=== PATIENT | female | born 1960 | race Two or more races ===

== ENCOUNTER 2024-10-22 08:51 | Inpatient (IN) | payer MEDICAID ==
[2024-10-20 12:55] LABS: Urine Bacteria None Seen /hpf (None Seen)
[2024-10-20 13:00] LABS: Basophils # (auto) 0.1 10 ^3/uL (0-0.2); Basophils % (auto) 1.1 % (0.0-2.0); Eosinophils # (auto) 0.4 10 ^3/uL (0-0.8); Eosinophils % (auto) 4.3 % (0.0-7.0); Hemoglobin 14.4 g/dL (12.2-16.2); Lymphocytes # (auto) 3.1 10 ^3/uL (0.4-5.4); Lymphocytes % (auto) 34.8 % (10.0-50.0); Mean Corpuscular Hemoglobin 28.1 pg (28.0-32.0); Mean Corpuscular Hgb Conc. 33.6 g/dL (32.0-36.0); Mean Corpuscular Volume 83.8 fL (80.0-100.0); Monocytes # (auto) 0.5 10 ^3/uL (0-1.3); Monocytes % (auto) 5.8 % (0.0-12.0); Neutrophils # (auto) 4.7 10 ^3/uL (1.6-8.6); Platelet Count (auto) 246 10^3/uL (140-450); Red Blood Cells 5.12 10^6/uL (4.0-5.20); Red Cell Distribution Width 14.5 % (11.8-14.3); White Blood Cell 8.8 10^3/uL (4.4-10.8)
[2024-10-20 13:15] LABS: INR 0.94 (0.9-1.15); Partial Thromboplastin Time 26.7 SEC (24.5-34.5)
[2024-10-20 13:23] LABS: Urine Blood TRACE /uL (Negative); Urine Budding Yeast OCCASIONAL /hpf (None Seen); Urine Clarity Clear (Clear); Urine Color Light-Yellow (Yellow); Urine Protein, UAD Negative (Negative); Urine Specific Gravity 1.019 (1.001-1.035); Urine Squamous Epithelial Cell FEW /hpf (<5); Urine Urobilinogen Normal (Negative); Urine WBC 49 /HPF (0-5)
[2024-10-20 13:31] LABS: Alanine Aminotransferase 17 U/L (7-40); Albumin 4.5 g/dL (3.2-4.8); Anion Gap 10 (5-15); Aspartate Aminotransferase 15 U/L (<34); Blood Urea Nitrogen 15 mg/dL (9-23); Calcium 10.1 mg/dL (8.7-10.4); Carbon Dioxide 26 mmol/L (20-31); Chloride 105 mmol/L (98-107); Potassium 4.2 mmol/L (3.5-5.1); Sodium 141 mmol/L (136-145); Total Protein 6.7 g/dL (5.7-8.2)
[2024-10-20 13:33] LABS: Alkaline Phosphatase 117 U/L (46-116); Bilirubin, Total 0.2 mg/dL (0.2-1.0); Glucose 122 mg/dL (74-106)
[~2024-10-22] VITALS: Ht 160 cm; Wt 96.6 kg
[~2024-10-22 08:51] MED LIST: CHOL200064 PO; DOXE10CA PO; IBUP-1456 PO; TIZA4CAP PO; VENL1TAB97 PO
--- NOTE | 2024-10-22 10:30 | DVHOP2 ---
Operative Report - 2 Report Details Date: 10/22/24 Preop Diagnosis: 1. Right foot metatarsalgia 2. Right foot pes cavus 3. Right foot pain Postop Diagnosis: Same as preop Surgeon: Judit Haque MD Anesthesiologist: See anesthesia Anesthesia: General Implant: 6 2 K-wire x 2 Consent: The patient was informed of the risks and benefits of the procedure. These include but are not limited to complications of anesthesia, postoperative infection, incomplete relief of symptoms, recurrence of symptoms, damage to blood vessels, nerves and tendons, deep venous thrombosis, pulmonary embolism and possible need for repeat surgery in the future. Complications: None Estimated Blood Loss: Minimal Fluids: See anesthesia Findings: Consistent with the diagnosis Indications for Surgery: Worsening right foot pain Name of Procedure Performed 1. Right first metatarsal bunion osteotomy (67027) 2. Right second jair osteotomy (81425) 3. Right third jair osteotomy (81883) 4. Right fourth jair osteotomy (51530) 5. Right fifth tailors bunionectomy (35275) Procedure Details Procedure Details: PRE-PROCEDURE INFORMATION: In the pre-op holding area, the extremity to be opera adriana on was clearly marked and the patient verified correct laterality of the marking. The patient was transferred to the OR table and placed in a supine position. A timeout was performed in which identification of the correct patient, procedure, location, and materials was done. The right foot and leg were prepped and draped in normal sterile fashion. DESCRIPTION OF PROCEDURE: Attention was directed to the right 2nd metatarsal head where a stab incision was made. The incision was deepened through blunt and sharp dissection. Care was taken to avoid damage to neurovascular structures throughout dissection. Incision was carried to the level of the 2nd metatarsal head or on fluoroscopy as well as preoperative x-rays, it was noted there was significant plantar flexion of the metatarsal head. Using an MIS bur, the an osteotomy was performed across the neck of the metatarsal head. The metatarsal head was then able to float. It was noted off intraoperative fluoroscopy, there was significant reduction deformity. Attention was directed to the right 3rd metatarsal head where a stab incision was made. The incision was deepened through blunt and sharp dissection. Care was taken to avoid damage to neurovascular structures throughout dissection. Incision was carried to the level of the 3rd metatarsal head or on fluoroscopy as well as preoperative x-rays, it was noted there was significant plantar flexion of the metatarsal head. Using an MIS bur, the an osteotomy was performed across the neck of the metatarsal head. The metatarsal head was then able to float. It was noted off intraoperative fluoroscopy, there was significant reduction deformity. Attention was directed to the right 4th metatarsal head where a stab incision was made. The incision was deepened through blunt and sharp dissection. Care was taken to avoid damage to neurovascular structures throughout dissection. Incision was carried to the level of the 4th metatarsal head or on fluoroscopy as well as preoperative x-rays, it was noted there was significant plantar flexion of the metatarsal head. Using an MIS bur, the an osteotomy was performed across the neck of the metatarsal head. The metatarsal head was then able to float. It was noted off intraoperative fluoroscopy, there was significant reduction deformity. Attention was directed to the right lateral fifth metatarsal head where a stab incision was made. This incision was deepened through blunt and sharp dissection. Care was taken to avoid damage to neurovascular structures throughout dissection. The incision was carried to the level of the fifth metatarsal head where on intraoperative fluoroscopy as well as preoperative x- rays, it was noted there was no significantly increased lateral deviation angle of the fifth metatarsal, but the lateral aspect of the fifth metatarsal head appeared to be prominent. This indicated that the patient would benefit from an ostectomy of the metatarsal head without osteotomy. Using an MIS bur, an osteotomy was made across the neck of the metatarsal head. Using a 0.62 K wire, the wire was then placed down the shaft of the 5th metatarsal holding the head in the appropriate position. It was noted on intraoperative fluoroscopy, there was significant reduction of deformity Attention was directed to the right 1st metatarsophalangeal joint where a stab incision was made at the neck of the 1st metatarsal. Care was taken to avoid damage the neurovascular and tendinous structures. Using intraoperative fluoroscopy and an MIS per, an osteotomy was then made at the neck of the 1st metatarsal. The metatarsal head was then shifted into position aligning the sesamoid bones over the fragment. Using a 6 2 K-wire, the wire was then driven down the shaft of the 1st metatarsal to hold the head in place until the osteotomy has healed. Fluoroscopy verified proper placement of hardware as well as correction of previous bunion deformity. All surgical wounds were irrigated copiously with saline and closed in layers with the aforementioned suture material. A dry sterile dressing was placed on the surgical extremity. The patient was placed in a cam boot POSTOPERATIVE INFORMATION: The patient tolerated the above noted procedure and anesthesia well and was transferred to the PACU with vital signs stable, and vascular status intact with capillary refill intact to all digits. Postoperative instructions reviewed in detail with the patient with written instructions pr ovided. Patient will return to clinic in approximately 10-14 days for first postoperative visit. Patient has the number of the clinic and was instructed to call prior to that time should any problems, questions, or concerns arise. Condition Good Disposition Home JUDIT HAQUE DPM Oct 22, 2024 10:30
[2024-10-22] MEDS ORDERED: fentaNYL CITRATE 100 MCG/2 ML VL ONE (11:47)
[2024-10-22] MEDS ORDERED: PROPOFOL 10 MG/ML 20 ML IV ONE (11:47)
[2024-10-22] MEDS ORDERED: ONDANSETRON HCL 4 MG/2 ML VIAL ONE (11:57)
[2024-10-22] MEDS ORDERED: DexAMETHasone SOD PHOS 10MG/1ML VIAL INJ ONE (11:57)
[2024-10-22] MEDS ORDERED: HYDROmorphone HCL 2 MG/ML VL/or syr ONE ×2 (12:02→12:51)
[2024-10-22] MEDS ORDERED: ePHEDrine SULFATE 50 MG/ML AMP ONE (12:04)
[2024-10-22] MEDS: ceFAZolin 2 GM/D5W50ml 50 ML IV ONE (12:04)
[2024-10-22] MEDS: LIDOCAINE 1% HCL (LOCAL ANESTH.) INJ 20ML MDV ONE (12:05)
[2024-10-22 12:23] VITALS: PULSE 76; RESP 13; O2SAT 100
[2024-10-22] MEDS ORDERED: ACETAMINOPHEN IV 100 ML IV ONE (12:51)
[2024-10-22] MEDS: HYDROmorphone HCL 2 MG/ML VL/or syr IV PRN (12:53)
[2024-10-22] MEDS: ACETAMINOPHEN IV 1000 MG/100ML (10MG/ML) IV PRN (13:00)
[2024-10-22] MEDS: ONDANSETRON HCL 4 MG/2 ML VIAL IV ONE (13:55)
[2024-10-22] MEDS ORDERED: NITROGLYCERIN 0.4 MG SL TAB SL PRN ×2 (15:00→15:30)
[2024-10-22] MEDS ORDERED: MORPHINE SULFATE INJ 2 MG/ml SYRG IV PRN ×2 (15:00→15:30)
[2024-10-22] MEDS ORDERED: LORazepam 2MG/ML-1ML VIAL IV PRN (15:30)
--- NOTE | 2024-10-22 15:33 | DVHHP2 ---
Review of Systems Allergies: Coded Allergies: NO KNOWN ALLERGIES (Unverified , 10/17/24) Medications Current Medications Medications Dose Ordered Sig/Ally Route Start Time Stop Time Status Last Admin Dose Admin Nitroglycerin 0.4 mg Q5MINP PRN SL 10/22/24 15:00 Morphine Sulfate 2 mg Q30M PRN IV 10/22/24 15:00 Exam Vital Signs Vital Signs Date Time Temp Pulse Resp B/P (MAP) Pulse Ox O2 Delivery O2 Flow Rate FiO2 10/22/24 14:23 Nasal Cannula 2.0 97 10/22/24 12:23 76 13 100 10/22/24 12:23 98.5 107/58 (74) 98.5 Labs/Xrays Labs Test 10/20/24 12:50 Range/Units White Blood Count 8.8 4.4-10.8 10^3/uL Red Blood Count 5.12 4.0-5.20 10^6/uL Hemoglobin 14.4 12.2-16.2 g/dL Hematocrit 43.0 36.0-46.0 % Mean Corpuscular Volume 83.8 80.0-100.0 fL Mean Corpuscular Hemoglobin 28.1 28.0-32.0 pg Mean Corpuscular Hemoglobin Concent 33.6 32.0-36.0 g/dL Red Cell Distribution Width 14.5 H 11.8-14.3 % Platelet Count 246 140-450 10^3/uL Mean Platelet Volume 8.5 6.9-10.8 fL Neutrophils (%) (Auto) 54.0 37.0-80.0 % Lymphocytes (%) (Auto) 34.8 10.0-50.0 % Monocytes (%) (Auto) 5.8 0.0-12.0 % Eosinophils (%) (Auto) 4.3 0.0-7.0 % Basophils (%) (Auto) 1.1 0.0-2.0 % Neutrophils # (Auto) 4.7 1.6-8.6 10 ^3/uL Lymphocytes # (Auto) 3.1 0.4-5.4 10 ^3/uL Monocytes # (Auto) 0.5 0-1.3 10 ^3/uL Eosinophils # (Auto) 0.4 0-0.8 10 ^3/uL Basophils # (Auto) 0.1 0-0.2 10 ^3/uL Nucleated Red Blood Cells 0.0 % Prothrombin Time 10.0 9.3-11.8 sec Prothrombin Time INR 0.94 0.9-1.15 Activated Partial Thromboplast Time 26.7 24.5-34.5 SEC Urine Color Light-yellow Yellow Urine Clarity Clear Clear Urine pH 5.0 5.0-9.0 Urine Specific [place] 1.019 1.001-1.035 Urine Protein Negative Negative Urine Ketones Negative Negative Urine Blood Trace H Negative /uL Urine Nitrite Negative Negative Urine Bilirubin Negative Negative Urine Urobilinogen Normal Negative mg/dL Urine Leukocyte Esterase 3+ Negative /uL Urine RBC 2 0 - 4 /hpf Urine Microscopic WBC 49 H 0-5 /HPF Urine Squamous Epithelial Cells Few <5 /hpf Urine Bacteria None seen None Seen /hpf Urine Yeast (Budding) Occasional None Seen /hpf Urine Glucose Normal Normal mg/dL Sodium Level 141 136-145 mmol/L Potassium Level 4.2 3.5-5.1 mmol/L Chloride Level 105 98-107 mmol/L Carbon Dioxide Level 26 20-31 mmol/L Anion Gap 10 5-15 Blood Urea Nitrogen 15 9-23 mg/dL Creatinine 1.00 0.550-1.02 mg/dL Glomerular Filtration Rate Calc 64 >90 mL/min BUN/Creatinine Ratio 15.0 10.0-20.0 Serum Glucose 122 H 74-106 mg/dL Calcium Level 10.1 8.7-10.4 mg/dL Total Bilirubin 0.2 0.2-1.0 mg/dL Aspartate Amino Transferase (AST) 15 <34 U/L Alanine Aminotransferase (ALT) 17 7-40 U/L Alkaline Phosphatase 117 H 46-116 U/L Total Protein 6.7 5.7-8.2 g/dL Albumin 4.5 3.2-4.8 g/dL Assessment/Plan Assessment/Plan SEE DICTATED NOTE Plan discussed with: Patient My Orders Orders - RAY PARKER MD Procedure Category Date Status Time Admit ADMIT 10/22/24 Transmitted 14:51 Electrocardigram EKG 10/22/24 Logged 14:51 Oxygen By Nasal RT 10/22/24 Transmitted Cannula 14:51 Nitroglycerin PHA 10/22/24 In Process Sublingual (Ntrostat 15:00 Morphine Sulfate PHA 10/22/24 In Process Injection 15:00 Stat Ekg For Chest [facility]STOP[facility] 10/22/24 In Process Pain 14:51 Notify Md Of Changes [facility] 10/22/24 In Process From Base 14:51 Gas Meter Repairer For [facility] 10/22/24 In Process 24 Hours 14:51 Emergency Dysrhythmia [facility] 10/22/24 In Process Protocol 14:51 Rhythm Strips Once [facility] 10/22/24 In Process Every Shift 14:51 Admit ADMIT 10/22/24 Transmitted 15:28 Nitroglycerin [facility] 10/22/24 Transmitted Sublingual (Ntrostat 15:30 Morphine Sulfate PHA 10/22/24 Transmitted Injection 15:30 Stat Ekg For Chest CRISTOPHER 10/22/24 In Process Pain 15:28 Notify Md Of Changes [facility] 10/22/24 Transmitted From Base 15:28 Gas Meter Repairer For [facility] 10/22/24 Transmitted 24 Hours 15:28 Emergency Dysrhythmia [facility] 10/22/24 Transmitted Protocol 15:28 Rhythm Strips Once [facility] 10/22/24 Transmitted Every Shift 15:28 Oxygen By Nasal RT 10/22/24 Transmitted Cannula 15:28 Complete Blood Count LAB 10/22/24 Logged 15:28 Comprehensive LAB 10/22/24 Logged Metabolic Panel 15:28 Troponin-I Hs LAB 10/22/24 Logged 15:28 Troponin-I Hs LAB 10/22/24 Logged 16:28 Troponin-I Hs LAB 10/22/24 Logged 18:28 NS PHA 10/22/24 Transmitted 15:30 Lorazepam 2mg/Ml Inj PHA 10/22/24 Transmitted (Ativan Inj) 15:30 Acetaminophen Tablet PHA 10/22/24 Transmitted (Tylenol Tablet) 15:30 Hydrocodone-Acet PHA 10/22/24 Transmitted 5/325mg Tab (Mandan 15:30 Ondansetron Hcl PHA 10/22/24 Transmitted (Zofran) 15:30 Urinalysis LAB 10/22/24 Uncollected 15:28 Chest Portable XY 10/22/24 Transmitted 15:28 Date of Service: Oct 22, 2024 Billing Provider: RAY PARKER MD Common Visit Codes: [id number] INP/OBS CARE (HIGH) RAY PARKER MD Oct 22, 2024 15:33
--- NOTE | 2024-10-22 15:48 | DVHHP ---
ADMIT DATE: 10/22/2024 HISTORY OF PRESENT ILLNESS: The patient is a 64-year-old lady who came in for surgery on the right foot. As the patient was getting ready to go home, the patient was noted to be increasingly diaphoretic, complaining of being hot and possibly confused. The patient denies any chest pain or shortness of breath. The patient continued to feel unwell with dizziness and mild confusion. There is no history of nausea or vomiting. REVIEW OF SYSTEMS: Review of rest systems are otherwise currently negative. PAST MEDICAL HISTORY: No significant illness in the past. MEDICATIONS: She takes no medicine on a regular basis. ALLERGIES: No known drug allergies. SOCIAL HISTORY: Denies smoking or alcohol. Lives at home with family. FAMILY HISTORY: Negative. PHYSICAL EXAMINATION: GENERAL: The patient is awake, alert. VITAL SIGNS: Temperature 98.5, pulse 76 per minute, blood pressure 107/58. SHEENT: Unremarkable. NECK: There is no JVD. No pedal edema. LUNGS: Equal bilaterally with no added sounds. CARDIOVASCULAR: S1 and S2 are regular. No murmurs. ABDOMEN: Soft. There is no organomegaly. NEUROLOGIC: Nonfocal. MUSCULOSKELETAL: The right foot is currently in a dressing. ASSESSMENT AND PLAN: * UTI, for which the patient will be placed on IV fluids and Rocephin and the urine culture will be obtained. * Obesity. * Status post right foot surgery for which she will be placed on pain medications. MD RACHEL Saha/ANA TID: [id number] RECEIPT: [id number]
--- NOTE | 2024-10-22 16:00 | DVH ---
AP portable chest CLINICAL INDICATION: HTN FINDINGS: Heart size is slightly enlarged in the aorta is tortuous. No infiltrates or effusions. IMPRESSION: 1. No acute cardiopulmonary pathology
[2024-10-22 16:48] LABS: Alanine Aminotransferase 14 U/L (7-40); Albumin 3.9 g/dL (3.2-4.8); Alkaline Phosphatase 103 U/L (46-116); Anion Gap 8 (5-15); Aspartate Aminotransferase 15 U/L (<34); BUN/Creatinine Ratio 11.2 (10.0-20.0); Blood Urea Nitrogen 10 mg/dL (9-23); Calcium 9.1 mg/dL (8.7-10.4); Carbon Dioxide 25 mmol/L (20-31); Chloride 112 mmol/L (98-107); Glucose 161 mg/dL (74-106); Potassium 3.8 mmol/L (3.5-5.1); Sodium 145 mmol/L (136-145)
[2024-10-22 16:49] LABS: Bilirubin, Total 0.2 mg/dL (0.2-1.0)
[2024-10-22 17:11] LABS: Basophils # (auto) 0 10 ^3/uL (0-0.2); Basophils % (auto) 0.4 % (0.0-2.0); Eosinophils # (auto) 0 10 ^3/uL (0-0.8); Eosinophils % (auto) 0.3 % (0.0-7.0); Hematocrit 44.8 % (36.0-46.0); Hemoglobin 14.8 g/dL (12.2-16.2); Lymphocytes # (auto) 0.9 10 ^3/uL (0.4-5.4); Lymphocytes % (auto) 11.9 % (10.0-50.0); Mean Corpuscular Hemoglobin 28.1 pg (28.0-32.0); Mean Corpuscular Volume 85.2 fL (80.0-100.0); Monocytes # (auto) 0.1 10 ^3/uL (0-1.3); Monocytes % (auto) 0.9 % (0.0-12.0); Neutrophils # (auto) 6.4 10 ^3/uL (1.6-8.6); Neutrophils % (auto) 86.5 % (37.0-80.0); Nucleated Red Blood Cells % 0.1 %; Platelet Count (auto) 199 10^3/uL (140-450); Red Blood Cells 5.26 10^6/uL (4.0-5.20); Red Cell Distribution Width 14.2 % (11.8-14.3); White Blood Cell 7.4 10^3/uL (4.4-10.8)
[2024-10-22 17:30] VITALS: BP 130/63; PULSE 52; PULSE 63; RESP 14; RESP 18; TEMP 97.1; O2SAT 100; O2SAT 96
[2024-10-22] MEDS: ONDANSETRON HCL 4 MG/2 ML VIAL IV PRN (18:06)
[2024-10-22] MEDS: HYDROcodone-ACET 5/325MG TAB PO PRN (18:06)
[2024-10-22 20:00] VITALS: PULSE 93; O2SAT 100
[2024-10-22] MEDS: cefTRIAXone 1GM/50ML D5W 50 ML IV ONE (20:32)
[2024-10-22] MEDS: SODIUM CHLORIDE 0.9% 1,000 ML IV SCH (20:32)
[2024-10-22] MEDS: ACETAMINOPHEN 325 MG TAB PO PRN (20:33)
[2024-10-22 21:00] VITALS: BP 101/42; PULSE 97; RESP 17; TEMP 97.8; O2SAT 90
[2024-10-23 01:00] VITALS: BP 100/58; PULSE 70; RESP 18; TEMP 96.3; O2SAT 99
[2024-10-23 05:00] VITALS: BP 116/65; PULSE 73; RESP 18; TEMP 97.9; O2SAT 100
[2024-10-23 06:42] LABS: Basophils # (auto) 0 10 ^3/uL (0-0.2); Basophils % (auto) 0.1 % (0.0-2.0); Eosinophils # (auto) 0 10 ^3/uL (0-0.8); Hematocrit 41.4 % (36.0-46.0); Hemoglobin 13.8 g/dL (12.2-16.2); Lymphocytes # (auto) 0.9 10 ^3/uL (0.4-5.4); Lymphocytes % (auto) 5.8 % (10.0-50.0); Mean Corpuscular Hgb Conc. 33.3 g/dL (32.0-36.0); Monocytes # (auto) 0.5 10 ^3/uL (0-1.3); Monocytes % (auto) 3.2 % (0.0-12.0); Neutrophils # (auto) 13.7 10 ^3/uL (1.6-8.6); Neutrophils % (auto) 90.9 % (37.0-80.0); Platelet Count (auto) 227 10^3/uL (140-450); Red Blood Cells 4.92 10^6/uL (4.0-5.20); Red Cell Distribution Width 14.2 % (11.8-14.3)
[2024-10-23 06:46] LABS: Potassium 4.9 mmol/L (3.5-5.1); Sodium 142 mmol/L (136-145)
[2024-10-23 06:47] LABS: Anion Gap 6 (5-15); Calcium 9.5 mg/dL (8.7-10.4); Carbon Dioxide 27 mmol/L (20-31)
[2024-10-23 06:52] LABS: BUN/Creatinine Ratio 12.5 (10.0-20.0); Blood Urea Nitrogen 10 mg/dL (9-23)
[2024-10-23 06:53] LABS: Chloride 109 mmol/L (98-107); Glucose 115 mg/dL (74-106)
--- NOTE | 2024-10-23 07:43 | ECG ---
[facility] Test Date: 2024-10-22 Test Time: 11:43:10 Pat Name: NESTOR CHAVIRA Department: Room: 0251T A Gender: F Barley Steeper: BERRY : 1960 Requested By: RAY PARKER Order Number: [id number] Reading MD: Gonzales Quinteros Measurements Intervals [place] Rate: P: 0 OK: 0 QRS: 0 QRSD: 0 T: 0 QT: 0 QTc: 0 Interpretive Statements No QRS complexes found, no ECG analysis possible Electronically Signed On 10-24-2024 21:11:45 PDT by Gonzales Quinteros Please click the below link to view image of tracing.
[2024-10-23 08:00] VITALS: PULSE 67
[2024-10-23] MEDS: cefTRIAXone 1GM/50ML D5W 50 ML IV SCH (08:51)
[2024-10-23 09:00] VITALS: BP 126/75; PULSE 70; RESP 16; TEMP 97.5; O2SAT 100
[2024-10-23 10:49] LABS: Urine Bacteria None Seen /hpf (None Seen)
[2024-10-23 11:25] LABS: Urine Blood Negative /uL (Negative); Urine Clarity Clear (Clear); Urine Color Colorless (Yellow); Urine Protein, UAD Negative (Negative); Urine Specific Gravity 1.009 (1.001-1.035); Urine Squamous Epithelial Cell None Seen /hpf (<5); Urine Urobilinogen Normal (Negative); Urine WBC < 1 /HPF (0-5)
--- NOTE | 2024-10-23 11:47 | DVHDS2 ---
Discharge Summary Date of Admission Oct 22, 2024 at 14:51 Date of Discharge: Oct 23, 2024 Labs/Diagnostic Data: Laboratory Results Test 10/23/24 08:40 10/23/24 06:08 10/22/24 19:17 10/22/24 16:09 Urine Color Colorless (Yellow) Urine Clarity Clear (Clear) Urine pH 6.0 (5.0-9.0) Urine Specific [place] 1.009 (1.001-1.035) Urine Protein Negative (Negative) Urine Ketones Negative (Negative) Urine Blood Negative /uL (Negative) Urine Nitrite Negative (Negative) Urine Bilirubin Negative (Negative) Urine Urobilinogen Normal mg/dL (Negative) Urine Leukocyte Esterase Negative /uL (Negative) Urine RBC None seen /hpf (0 - 4) Urine Microscopic WBC < 1 /HPF (0-5) Urine Squamous Epithelial Cells None seen /hpf (<5) Urine Bacteria None seen /hpf (None Seen) Urine Glucose Normal mg/dL (Normal) White Blood Count 15.0 10^3/uL (4.4-10.8) Red Blood Count 4.92 10^6/uL (4.0-5.20) Hemoglobin 13.8 g/dL (12.2-16.2) Hematocrit 41.4 % (36.0-46.0) Mean Corpuscular Volume 84.0 fL (80.0-100.0) Mean Corpuscular Hemoglobin 28.0 pg (28.0-32.0) Mean Corpuscular Hemoglobin Concent 33.3 g/dL (32.0-36.0) Red Cell Distribution Width 14.2 % (11.8-14.3) Platelet Count 227 10^3/uL (140-450) Mean Platelet Volume 8.6 fL (6.9-10.8) Neutrophils (%) (Auto) 90.9 % (37.0-80.0) Lymphocytes (%) (Auto) 5.8 % (10.0-50.0) Monocytes (%) (Auto) 3.2 % (0.0-12.0) Eosinophils (%) (Auto) 0.0 % (0.0-7.0) Basophils (%) (Auto) 0.1 % (0.0-2.0) Neutrophils # (Auto) 13.7 10 ^3/uL (1.6-8.6) Lymphocytes # (Auto) 0.9 10 ^3/uL (0.4-5.4) Monocytes # (Auto) 0.5 10 ^3/uL (0-1.3) Eosinophils # (Auto) 0 10 ^3/uL (0-0.8) Basophils # (Auto) 0 10 ^3/uL (0-0.2) Nucleated Red Blood Cells 0.0 % Sodium Level 142 mmol/L (136-145) Potassium Level 4.9 mmol/L (3.5-5.1) Chloride Level 109 mmol/L (98-107) Carbon Dioxide Level 27 mmol/L (20-31) Anion Gap 6 (5-15) Blood Urea Nitrogen 10 mg/dL (9-23) Creatinine 0.80 mg/dL (0.550-1.02) Glomerular Filtration Rate Calc 83 mL/min (>90) BUN/Creatinine Ratio 12.5 (10.0-20.0) Serum Glucose 115 mg/dL (74-106) Calcium Level 9.5 mg/dL (8.7-10.4) Troponin I High Sensitivity 3 ng/L (</=34) Total Bilirubin 0.2 mg/dL (0.2-1.0) Aspartate Amino Transferase (AST) 15 U/L (<34) Alanine Aminotransferase (ALT) 14 U/L (7-40) Alkaline Phosphatase 103 U/L (46-116) Total Protein 6.0 g/dL (5.7-8.2) Albumin 3.9 g/dL (3.2-4.8) Test 10/20/24 12:50 Prothrombin Time 10.0 sec (9.3-11.8) Prothrombin Time INR 0.94 (0.9-1.15) Activated Partial Thromboplast Time 26.7 SEC (24.5-34.5) Urine Yeast (Budding) Occasional /hpf (None Other Laboratory Tests 10/23/24 06:08 Brief Hx & Hospital Course: see dictated note Condition at Discharge: Good Final Diagnosis/Problems List Right foot pes cavus and metatarsalgia Discharge Disposition: Home Discharge Instruct/Medications Diet: Regular Activity: Light activity Activity comment: WBAT Follow Up/Referral: 2 weeks Medications: Oxycodone 5mg Doxycycline 100mg Discharge Statement: "Patient was advised to return to the ER or call 911 if any headaches, dizziness, shortness of breath, chest pain, abdominal pain, bleeding, fevers, or worsening of medical condition. Patient was counseled about treatment plan, medications, possible side effects, patientverbalized understanding. All questions were answered to the best of my ability. This discharge took greater then 30 minutes in planning, reviewing documentation, counseling the patient, and discussing with other team members." ASSESSMENT ASSESSMENT Assessment Right foot pes cavus and metatarsalgia Date of Service: Oct 23, 2024 Billing Provider: RAY PARKER MD Common Visit Codes: [id number] DISCH DAY >30min RAY PARKER MD Oct 23, 2024 11:47
--- NOTE | 2024-10-23 12:07 | DVHDS ---
DATE OF DISCHARGE: 10/23/2024 HISTORY OF PRESENT ILLNESS: The patient is a 64-year-old lady who was admitted after she became diaphoretic and mildly confused after she underwent surgery on the right foot. HOSPITAL COURSE: The patient had a chest x-ray that showed no acute abnormality. The patient had mild UTI that was treated with IV Rocephin. Troponin levels were negative for acute TN. The patient will now be discharged home to resume her home medications and follow up with Podiatry in the next 1-2 weeks. FINAL DIAGNOSES: Therefore, * UTI. * Obesity. * Status post right foot surgery for pes cavus deformity. Time spent in discharge planning and review of plan with the patient and nursing was 36 minutes. MD RACHEL Saha/JESSICA TID: [id number] RECEIPT: [id number]
[2024-10-23 13:00] VITALS: BP 105/54; PULSE 80; RESP 17; TEMP 97.8; O2SAT 95
--- NOTE | 2024-10-24 07:45 | ECG ---
[facility] Test Date: 2024-10-22 Test Time: 14:49:27 Pat Name: NESTOR CHAVIRA Department: Room: 0251T A Gender: F Global Account Director: ARMIN : 1960 Requested By: RAY PARKER Order Number: [id number] Reading MD: Gonzales Quinteros Measurements Intervals [place] Rate: 61 P: 45 RI: 128 QRS: 59 QRSD: 88 T: 55 QT: 460 QTc: 463 Interpretive Statements Normal sinus rhythm with sinus arrhythmia Electronically Signed On 10-24-2024 21:11:51 PDT by Gonzales Quinteros Please click the below link to view image of tracing.
--- NOTE | 2024-10-24 07:45 | ECG ---
[facility] Test Date: 2024-10-22 Test Time: 11:48:04 Pat Name: NESTOR CHAVIRA Department: Room: 0251T A Gender: F Blanking Press Operator: BERRY : 1960 Requested By: RAY PARKER Order Number: [id number] Reading MD: Gonzales Quinteros Measurements Intervals [place] Rate: 65 P: 25 ID: [id number] QRS: 64 QRSD: 74 T: 41 QT: 428 QTc: 445 Interpretive Statements Sinus rhythm with short ID Electronically Signed On 10-24-2024 21:11:47 PDT by Gonzales Quinteros Please click the below link to view image of tracing.
== END 2024-10-23 17:00 | disposition home or self-care (01) | DRG 314 ==
LOC: SUR 08:51 → EDSTATUS 10:45 → OVERFLOW 14:51 → TELE-EAST 17:36
PROVIDERS: ADMIT Internal Medicine; ATTEND Internal Medicine
PROC: 0QSN0ZZ Reposition Right Metatarsal, Open Approach (ICD-10-PCS; 2024-10-22)
PROC: 0QSN0ZZ Reposition Right Metatarsal, Open Approach (ICD-10-PCS; 2024-10-22)
PROC: 0QSN0ZZ Reposition Right Metatarsal, Open Approach (ICD-10-PCS; 2024-10-22)
PROC: 0QSN04Z Reposition Right Metatarsal with Internal Fixation Device, Open Approach (ICD-10-PCS; 2024-10-22)
PROC: 0QS Lower Bones, Reposition (ICD-10-PCS; principal; 2024-10-22 11:55)
DX: M77.41 Metatarsalgia, right foot (principal); E66.9 Obesity, unspecified; Q66.71 Congenital pes cavus, right foot; Z68.37 Body mass index [BMI] 37.0-37.9, adult; N30.00 Acute cystitis without hematuria
CPT/HCPCS: 36415; 71045; 80048; 80053; 81001; 84484; 85025; 85610; 85730; 87086; 93005; G0378; J0131; J1100; J2003; J2405; J2704